=== PATIENT | male | born 1950 | race Two or more races ===

== ENCOUNTER 2017-07-20 06:32 | Day surgery (SDC) | payer MEDICARE, MEDICAID ==
--- NOTE | 2017-07-16 14:49 | Pre-Procedure Note/Attestation ---
Pre-Procedure Note/Attestation Complete Prior to Procedure Planned Procedure: left Procedure Narrative: PHACO WITH IOL Indications for Procedure Pre-Operative Diagnosis: CATARACT Attestation I attest that I discussed the nature of the procedure; its benefits; risks and complications; and alternatives (and the risks and benefits of such alternatives ), prior to the procedure, with the patient (or the patient's legal traffic representative). I attest that, if there was a reasonable possibility of needing a blood transfusion, the patient (or the patient's legal traffic representative) was given the [facility] standardized written summary, pursuant to the [place] Blood Safety Act ([place] Health and Safety Code # 1645, as amended). I attest that I re-evaluated the patient just prior to the surgery and that there has been no change in the patient's H&P, except as documented below: AUGUSTA SINGH Jul 16, 2017 14:49
--- NOTE | 2017-07-16 14:51 | Opthalmology H&P ---
Ophthalmology H&P H&P Chief Complaint: decreased vision in left eye HPI Vision Affects Ability to: read, focus/use eyes together, manage personal affairs HPI Narrative BLURRY VISION Exam Visual Acuity: OD; 20/50 OS; 20/200 Tension: OD; 13 OS; 13 Eye Exam: normal OU: external exam, palpebral fissure-width, marginal reflex distance, levator function, corneas, anterior chambers, findings: lens - OD; NS OS; NS, fundus exam - PDR OU Assessment/Plan Diagnosis: (1) Nuclear sclerosis of left eye Treatment Plan: cataract extraction w/ lens implant Goals of Treatment: improvement of vision, enhance quality of life Attestation Attestation The risks and benefits of the surgery as well as alternative procedures were explained to the patient in detail. AUGUSTA SINGH Jul 16, 2017 14:50
[~2017-07-20] VITALS: Ht 162.6 cm; Wt 61.2 kg
[2017-07-20] VITALS (9 sets, daily range): BP systolic 108–128; BP diastolic 64–77
[~2017-07-20 06:32] MED LIST: GLIPIZIDE5 MG ORAL; LISINOPRIL5 MG ORAL; METFORMIN HCL1000 M1 ORAL
[2017-07-20] MEDS ORDERED: Sterile Water Irrig 1000ml IRRIG ONE (06:33)
[2017-07-20] MEDS ORDERED: NS Irrig 1000ml ONE (06:33)
[2017-07-20] MEDS ORDERED: fentaNYL 100 mcg/2 mL IV ONE (06:33)
[2017-07-20] MEDS ORDERED: Midazolam 2mg/2ml Inj ONE (06:33)
[2017-07-20] MEDS ORDERED: Proparacaine 0.5% Opth Soln 15ml LEFT EYE ONE (07:00)
[2017-07-20] MEDS ORDERED: Akten 3.5% 1ml Btl LEFT EYE ONE (07:00)
[2017-07-20] MEDS ORDERED: Tetracaine 0.5% Opth 4ml Soln LEFT EYE ONE (07:00)
[2017-07-20] MEDS: Tropicamide 1% Opth 15ml Soln LEFT EYE SCH ×3 (09:01→09:29)
[2017-07-20] MEDS: Tobramycin Op Soln 0.3% 5ml LEFT EYE SCH ×3 (09:01→09:30)
[2017-07-20] MEDS: Phenylephrine 10% Opth Soln 5ml LEFT EYE SCH ×3 (09:01→09:30)
[2017-07-20] MEDS: Cyclopentolate 1% Opth Sol 2ml LEFT EYE SCH ×3 (09:02→09:29)
[2017-07-20] MEDS ORDERED: BSS 500ml btl ONE (13:27)
[2017-07-20] MEDS ORDERED: BSS 15ml BTL ONE (13:27)
[2017-07-20] MEDS ORDERED: Povidone-Iodine 5% opth solution ONE (13:27)
[2017-07-20] MEDS ORDERED: Sodium Hyaluronate 14 mg/ml 0.85ml ONE ×2 (13:27→13:28)
[2017-07-20] MEDS ORDERED: EPINEPHrine 1mg/1ml Amp ONE (13:27)
--- NOTE | 2017-07-20 14:13 | Brief Operative Note ---
Immediate Post Operative Note Operative Note Chief Complaint: blurry vision Pre-op Diagnosis: CATARACT, OS Procedure: phaco with IOL, OS Post-op Diagnosis: pseudophakia Post-op Diagnosis: same as pre-op Findings: consistent w/pre-op dx studies Surgeon: Aleshia Anesthesiologist: Moy Anesthesia: MAC Specimen: none Complications: none Condition: stable Fluids: LR Estimated Blood Loss: none Drains: none Implant(s) used?: Yes AUGUSTA SINGH Jul 20, 2017 14:13
--- NOTE | 2017-07-20 14:14 | Operative Note - PDOC ---
Operative Note Operative Note Date of Operation/Procedure: Jul 20, 2017 Chief Complaint: blurry vision Pre-op Diagnosis: CATARACT, OS Procedure: phaco with IOL, OS Post-op Diagnosis: pseudophakia Post-op Diagnosis: same as pre-op Operative Findings: consistent w/pre-op dx studies Surgeon: Aleshia Anesthesiologist: Moy Anesthesia: MAC Specimen: none Complications: none Condition: stable Fluids: LR Estimated Blood Loss: none Drains: none Implant(s) used?: Yes Indications for Procedure cataract Description of Procedure This patient has been complaining visually significant cataract in the affected eye with the best corrected visual acuity under moderate glare conditions worse. The patient complains of difficulties with glare in performing activities of daily living and wants to manage personal affairs with comfort and accuracy and see well enough to move with safety at home and outdoors. The risks, benefits and alternatives of the procedure were discussed with the patient in the office prior to scheduling surgery. All questions from the patient were answered after the surgical procedure was explained in detail. The risks of the procedure as explained to the patient include, but are not limited to, pain, infection, bleeding, loss of vision, retinal detachment, need for further surgery, loss of lens nucleus, double vision, etc. Alternative procedures were discussed which include, to do nothing or seek a second opinion. Informed consent for this procedure was obtained from the patient. The patient was referred to a primary care physician for a cardiopulmonary clearance prior to surgery, after proper evaluation was done patient was properly scheduled for outpatient surgery. The patient was brought to the operating room where the anesthesiologist established I.V. lines and cardiac monitoring leads. Mild intravenous sedation was administered. The patient was then prepared with a 5% solution of povidone- iodine to the conjunctival fornix and lashes, and a 10% solution of povidone- iodine to the lids and periorbital skin. The patient was then draped in the usual sterile fashion. A lid speculum was then placed in the operative eye. A keratome blade was then used to create a biplanar incision into the anterior chamber. Viscoelastics was then instilled into the anterior chamber. A capsulorrhexis was then fashioned with an utrata forceps followed by a BSS using a G 27 cannula was then used to hydrodissect and hydro delineate the lens. Paracentesis incision was made at 3 o'clock with sharp blade. The phacoemulsification unit, after being properly adjusted and tested, was then used to emulsify the nucleus then residual cortical material was aspirated with the irrigation and aspiration unit. Healon was then instilled into the anterior chamber. The corneal wound was then enlarged to the size of the optic with the jonathan keratome blade. The intraocular lens was then inspected for right power and size and thought to be satisfactory. Then the lens was gently placed in the capsular bag. Positioning within the capsular bag was confirmed by direct visualization. Optic centration was accomplished with a Sinskey hook. Viscoelastics was removed from the anterior chamber using the irrigation and aspiration unit. The corneal wound was then tested for leaks and none were found. The lid speculum were then removed. Sponge and needle counts were correct. An eye patch and shield were placed over the operative eye. The patient was taken to the recovery room in stable condition. There were no complications. The patient tolerated the procedure well. The patient was then transferred to the ambulatory surgery unit in stable and satisfactory condition , was given detailed written instructions and asked to follow up in the office the next day. AUGUSTA SINGH M.D. AUGUSTA SINGH Jul 20, 2017 14:14
== END 2017-07-20 12:50 | disposition home or self-care (01) ==
LOC: SUR 06:32
DX: H25.12 Age-related nuclear cataract, left eye (principal); I10 Essential (primary) hypertension; E11.9 Type 2 diabetes mellitus without complications; Z83.3 Family history of diabetes mellitus; Z86.73 Personal history of transient ischemic attack (TIA), and cerebral infarction without residual deficits; Z79.84 Long term (current) use of oral hypoglycemic drugs
CPT/HCPCS: 66984; 82962; J0171; J1815; J2250; J3010; V2632; 94003; 94150